=== PATIENT | male | born 1950 | race Caucasian/White ===

== ENCOUNTER 2018-04-22 05:34 | Outpatient (CLI) | payer MEDICARE ==
[~2018-04-22] VITALS: Ht 167.6 cm; Wt 59.0 kg
[2018-04-22] MEDS ORDERED: CLOP75TA69 PO (09:42)
[2018-04-22] MEDS ORDERED: ASPI-808 PO (09:42)
[2018-04-22] MEDS ORDERED: ROSU20TA PO (09:42)
[2018-04-22] MEDS ORDERED: MORP30TA60 PO (09:42)
[2018-04-22] MEDS ORDERED: HYDR-3820 PO (09:43)
== END 2018-04-22 09:57 | disposition home or self-care (01) ==
LOC: PREOP 05:34
PROVIDERS: ATTEND Surgery
DX: Z01.818 Encounter for other preprocedural examination (principal)

== ENCOUNTER 2018-04-29 06:29 | Day surgery (SDC) | payer MEDICARE, OTHER ==
[~2018-04-29] VITALS: Ht 167.6 cm; Wt 59.0 kg
[~2018-04-29 06:29] MED LIST: ASPI-808 PO; CLOP75TA69 PO; HYDR-3820 PO; MORP30TA60 PO; ROSU20TA PO
[2018-04-29] MEDS ORDERED: LACTATED RINGERS 1,000 ML IV ONE ×2 (07:01→08:45)
[2018-04-29 07:08] VITALS: BP 155/77
[2018-04-29] MEDS ORDERED: PROPOFOL INJECTION 50 ML IV ONE ×2 (07:14→08:45)
[2018-04-29] MEDS ORDERED: MIDAZOLAM 2 MG/2 ML (VERSED) VIAL ONE (07:15)
--- NOTE | 2018-04-29 08:19 | Progress Note-Pre Operative ---
Pre-Operative Progress Note H&P Reviewed The H&P was reviewed, patient examined and no changes noted. Time Seen by Provider: 08:14 Date H&P Reviewed: Apr 29, 2018 Time H&P Reviewed: 08:15 Pre-Operative Diagnosis: screening colonoscopy, Hx of colonic polyps GRACIELA MELISSA DO Apr 29, 2018 08:19
--- OUTSIDE RECORDS SUMMARY | 2018-04-29 08:53 | XMS REPORT | CCD ---
Author Author SHADI GARZA Unknown Address [address] [place] [address] Care Team Providers Care Net Developer Programmer Name Role Phone BROOKLYN BEYER, SHIN Fuller Attphys Allergies Allergy Code Allergy Type Reaction Status Unknown Code - 0 0 Propensity to adverse reactions Active NIACIN 7393 Drug allergy Active PENICILLINS (CLASS) 55590 Drug allergy Active Active Medications Unknown or Not Available. Problems Unknown or Not Available. Procedures Procedure Code Procedure Type Date CX CHEST [address] 04/07/2017 TROPONIN-I ADV 292710757 SNOMED CT 04/07/[address] 04/07/2017 CBC W/ AUTO DIFF (RFLX MAN DIFF IF IND) 3502507 SNOMED CT 04/07/2017 COMPREHENSIVE METABOLIC PANEL 938908697 SNOMED CT [address] 04/07/2017 ^CBC W/AUTO DIFF 8168037 SNOMED CT 04/07/2017 Results COMPREHENSIVE METABOLIC PANEL - Collect Date/Time: 04/07/2017 12:45 Test Name Code Test Result Test Units Test Ref Range GLUCOSE 2345-7 91 MG/DL L=70 H=100 SODIUM 2951-2 140 MEQ/L L=135 H=148 POTASSIUM 2823-3 4.6 MEQ/L L=3.5 H=5.3 CHLORIDE 2075-0 107 MEQ/L L=96 H=110 CO2 2028-9 23 MEQ/L L=22 H=29 BUN 3094-0 19 MG/DL L=8 H=22 CREATININE 2160-0 0.8 MG/DL L=0.6 H=1.6 SGOT/AST 1920-8 19 IU/L L=10 H=40 SGPT/ALT 1742-6 23 IU/L L=8 H=54 ALK PHOS 6768-6 108 IU/L L=35 H=115 TOTAL PROTEIN 2885-2 6.5 G/DL L=5.5 H=8.5 ALBUMIN 1751-7 3.9 G/DL L=3.1 H=5.4 TOTAL BILI 1975-2 0.4 MG/DL L=0.0 H=1.5 CALCIUM 80900-8 9.5 MG/DL L=8.2 H=10.6 AGE 66 yrs GFR NonAA 96 GFR AA 116 eGFR >60 N/A eGFR AA* >60 N/A MAGNESIUM - Collect Date/Time: 04/07/2017 12:45 Test Name Code Test Result Test Units Test Ref Range MAGNESIUM 45953-0 2.3 MG/DL L=1.7 H=2.8 CBC W/ AUTO DIFF (RFLX MAN DIFF IF IND) - Collect Date/Time: 04/07/2017 12:45 Test Name Code Test Result Test Units Test Ref Range WBC 09164-3 8.2 TH/CMM L=4.5 H=10.8 RBC 789-8 4.47 ML/CMM L=4.70 H=6.10 HGB 718-7 14.1 G/DL L=14.0 H=18.0 HCT 4544-3 42.2 % L=42.0 H=52.0 MCV 94 FL L=81 H=99 MCH 31.5 PG L=27.0 H=33.0 MCHC 33.4 G/DL L=31.0 H=36.0 RDW SD 44 FL L=36 H=50 RDW CV 12.5 % L=0.0 H=14.8 MPV 9.9 FL L=9.3 H=12.5 PLT 777-3 206 TH/CMM L=130 H=440 NRBC# 0.00 TH/CMM L=0.00 H=0.00 NRBC% 0.0 /100WBC L=0.0 H=2.0 %NEUT 64.1 % %LYMP 23.5 % %MONO 10.2 % %EOS 1.5 % %BASO 0.6 % #NEUT 5.25 TH/CMM L=2.10 H=8.20 #LYMP 1.93 TH/CMM L=0.90 H=5.20 #MONO 0.84 TH/CMM L=0.16 H=1.00 #EOS 0.12 TH/CMM L=0.00 H=0.80 #BASO 0.05 TH/CMM L=0.00 H=0.20 MANUAL DIFF NOT IND N/A PT/PTT - Collect Date/Time: 04/07/2017 12:45 Test Name Code Test Result Test Units Test Ref Range PROTIME 5964-2 10.1 SEC L=9.9 H=11.9 INR 68906-5 0.9 PTT 3173-2 30.1 SEC L=22.2 H=37.2 BNP - Collect Date/Time: 04/07/2017 12:45 Test Name Code Test Result Test Units Test Ref Range BNP 66998-5 94 PG/ML L=0 H=100 TROPONIN-I ADV - Collect Date/Time: 04/07/2017 12:45 Test Name Code Test Result Test [place] [address]-4 <0.04 ng/mL L=0.04 H= 0.40 Function Status Unknown or Not Available. History of Immunizations Unknown or Not Available. Plan of Treatment Unknown or Not Available. Social History Smoking Status Code Start Date End Date Current every day smoker 441428446 Vital Signs Unknown or Not Available. Function Status Unknown or Not Available. Goals Unknown or Not Available. ASSESSMENTS Unknown or Not Available. Health Concerns Section Unknown or Not Available.
--- OUTSIDE RECORDS SUMMARY | 2018-04-29 08:54 | XMS REPORT ---
Author Author Mg Posadas Organization [facility] Address [address] [place], [place] [id number] Care Team Providers Care Manager Research And Development Name Role Phone Mg Posadas PCP Unavailable Allergies and Adverse Reactions Name Reaction Notes PENICILLINS Plan of Treatment Planned Activity Comments Planned Date Planned Time Plan/Goal ASSAY OF PSA TOTAL 07/11/2016 12:00 AM COMPLETE CBC W/AUTO DIFF WBC 07/11/2016 12:00 AM METABOLIC PANEL TOTAL CA 07/11/2016 12:[address] ABD & PELV W/CONTRAST 07/11/2016 12:00 AM Medications Active Name Start Date Estimated Completion Date SIG Comments Plavix oral morphine oral hydrocodone-acetaminophen oral Xanax oral Name Start Date Expiration Date SIG Comments Prevacid 30 mg oral capsule,delayed release(DR/EC) take 1 capsule (30 mg ) by oral route once daily before a meal Zantac 150 mg oral tablet take 1 tablet (150 mg) by oral route once daily at bedtime Kapidex 60 mg oral capsule,biphase delayed releas 01/06/2010 01/31/2010 take 1 capsule (60 mg) by oral route once daily for 25 days Phenergan 25 mg oral tablet 01/15/2010 01/25/2010 take 1 tablet (25 mg) by oral route every 4 hours as needed for 10 days Klonopin 1 mg oral tablet 01/15/2010 02/14/2010 1 qd to BID prn tuzrcuusre-otvqotr-hicxgtdm 50-325-40 mg oral tablet 01/30/2010 03/31/2010 1 tab every 6 hours prn Lortab 10-500 mg oral tablet 02/03/2010 05/04/2010 take 1 tablet by oral route every 6 hours as needed for breakthrough pain MS Contin 15 mg oral tablet extended release 03/14/2010 04/13/2010 take 1 tablet (15 mg) by oral route every 12 hours for 30 days Problem List Description Status Onset Dysuria Active 07/27/2014 Slowing of Urinary Stream Active 07/27/2014 Benign Hypertrophy of Prostate (BPH) Active 07/27/2014 H/O: urethral stricture Active 08/31/2014 Vital Signs Date Time BP-Sys(mm[Hg] BP-Ruthann(mm[Hg]) HR(bpm) RR(rpm) Temp WT HT HC BMI BSA BMI Percentile O2 Sat(%) 07/11/2016 11:31:00 AM 122 mmHg 78 mmHg 57 bpm 17 rpm 97.8 F 130 lbs 65 in 21.63 kg/m2 1.64 m2 97 % 08/31/2014 8:51:00 AM 170 lbs 66 in 27.4384 kg/m 1.8949 m 07/27/2014 8:19:00 AM 166 lbs 66 in 26.79 kg/m2 1.87 m2 01/13/2010 9:28:00 AM 140 mmHg 80 mmHg 173 lbs 01/06/2010 8:58:00 AM 140 mmHg 80 mmHg 182 lbs 11/10/2009 10:20:00 AM 120 mmHg 80 mmHg 186 lbs Social History Name Description Comments lives at home Lives with spouse LIVES WITH SON denies alcohol use sober x 8 years Tobacco Use 1/2 pack daily [employer] service History of Procedures Date Ordered Description Order Status 01/13/2010 12:[address] ABDOMEN W/O & W/DYE Reviewed 01/13/2010 12:00 AM OSTEOPATH MANJ 1-2 REGIONS Reviewed 11/10/2009 12:00 AM OSTEOPATH MANJ 1-2 REGIONS Reviewed 11/10/2009 12:00 AM OSTEOPATH MANJ 3-4 REGIONS Reviewed 07/27/2014 9:28 AM URINALYSIS AUTO W/O SCOPE Reviewed Results Summary Data and Description Results 07/27/2014 9:28 AM Bilirub Ur Ql Strip -VE Glucose Ur-sCnc -VE Hgb Ur Ql Strip -VE Ketones Ur Ql Strip -VE Nitrite Ur Ql Strip -VE pH Ur-LsCnc 6.0 Prot Ur Ql Strip TRACE Sp Gr Ur Qn 1020 Urobilinogen Ur-mCnc -VE WBC Est Ur Ql Strip -VE 07/30/2014 9:50 AM WBC 9.0 RBC 4.37 HGB 13.70 g/dLHCT 41.50 %MCV 95.0 fLMCH 31.40 pgMCHC 33.0 g/dLRDW CV 13.30 %MPV 10.20 fLPLT 204 %NEUT 68.80 %%LYMP 24.90 %%MONO 5.10 %%EOS 1.0 %%BASO 0.20 %#NEUT 6.20 #LYMP 2.25 #MONO 0.46 #EOS 0.09 #BASO 0.02 GLUCOSE 129.0 mg/dLSODIUM 140.0 mmol/LPOTASSIUM 3.90 mmol/ LCHLORIDE 108.0 mmol/LCO2 22.0 mmol/LBUN 10.0 mg/dLCREATININE 0.80 mg/dLSGOT/ AST 25.0 IU/LSGPT/ALT 36.0 IU/LALK PHOS 121.0 IU/LTOTAL PROTEIN 5.80 g/ dLALBUMIN 3.70 g/dLTOTAL BILI 0.40 mg/dLCALCIUM 9.30 mg/dLeGFR 60 History Of Immunizations Not available. History of Past Illness Name Date of Onset Comments prostate cancer Back pain Gastritis Jan 06 2010 8:59AM Heartburn Jan 06 2010 8:59AM Low Back Pain Jan 06 2010 8:59AM Abdominal Pain, Generalized Jan 13 2010 9:30AM Gastroesophageal Reflux Jan 13 2010 9:30AM Nausea Jan 13 2010 9:30AM Weight Loss Jan 13 2010 9:30AM Low Back Pain Jan 13 2010 9:30AM Lumbar Disc Disease Jan 13 2010 9:30AM Anxiety Disorder Jan 13 2010 9:30AM Fatigue Jan 13 2010 9:30AM Prostate Cancer Jan 13 2010 9:30AM Gastroesophageal Reflux b 2009 10:21AM Nausea b 2009 10:21AM Low Back Pain Nov 10 2009 10:21AM Lumbar Disc Disease Nov 10 2009 10:21AM Neck Pain b 2009 10:21AM Cervical Somatic Dysfunction Nov 10 2009 10:21AM Thoracic Somatic Dysfunction Nov 10 2009 10:21AM Cervical Somatic Dysfunction Jan 15 2010 9:04PM Thoracic Somatic Dysfunction Jan 15 2010 9:04PM Cervical Somatic Dysfunction Feb 07 2010 2:02PM Thoracic Somatic Dysfunction Feb 07 2010 2:02PM Lumbar Somatic Dysfunction Feb 07 2010 2:02PM Dysuria 07/27/2014 Slowing of Urinary Stream 07/27/2014 Benign Hypertrophy of Prostate (BPH) 07/27/2014 H/O: urethral stricture 08/31/2014 Moderate Dysuria Jul 27 2014 8:25AM Moderate Slowing of Urinary Stream Jul 27 2014 8:25AM Moderate Benign Hypertrophy of Prostate (BPH) Jul 27 2014 8:25AM Severe H/O: urethral stricture Aug 31 2014 9:22AM Smoking Jul 11 2016 12:00PM Weight loss Jul 11 2016 12:00PM Left Lower abdominal pain Jul 11 2016 12:00PM Bladder cancer Jul 11 2016 12:00PM Payers Insurance Name Company Name Plan Name Plan Number Policy Number Policy Group Number Start Date Medicare Part B [employer] [place] [id number] Tuesday, 2005 [facility] [id number] N/A History of Encounters Visit Date Visit Type Provider 07/11/2016 Office visit Mg Posadas MD 12/26/2015 Hospital V Jere Posadas MD 02/02/2015 Hospital Mg Posadas MD 02/01/2015 Office visit Mg Posadas MD 08/31/2014 Office visit Mg Posadas MD 08/03/2014 Surgery Mg Posadas MD 07/27/2014 Office visit Mg Posadas MD 06/01/2012 [facility] Rishi Meredith MD 01/13/2010 Office visit Quinn Mcclain DO 01/06/2010 Office visit Quinn Mcclain DO 11/10/2009 Procedures Quinn Mcclain DO 07/20/2009 Office visit Quinn Mcclain DO 06/16/2009 Office visit Quinn Mcclain DO
--- OUTSIDE RECORDS SUMMARY | 2018-04-29 08:54 | XMS REPORT ---
Author Author [facility] Organization [facility] Address [address] [place], [place] [id number] Care Team Providers Care Manufacturing Finance Manager Name Role Phone PCP Unavailable Allergies and Adverse Reactions Name Reaction Notes PENICILLINS Plan of Treatment Not available. Medications Active Name Start Date Estimated Completion Date SIG Comments Plavix oral morphine oral hydrocodone-acetaminophen oral Xanax oral Name Start Date Expiration Date SIG Comments Prevacid Oral Capsule, Delayed Release(E.C.) 30 mg take 1 capsule (30 mg ) by oral route once daily before a meal Zantac Oral Tablet 150 mg take 1 tablet (150 mg) by oral route once daily at bedtime Kapidex Oral Cap, Delayed Rel., Multiphasic 60 mg 01/06/2010 01/31/2010 take 1 capsule (60 mg) by oral route once daily for 25 days Phenergan Oral Tablet 25 mg 01/15/2010 01/25/2010 take 1 tablet (25 mg) by oral route every 4 hours as needed for 10 days Klonopin Oral Tablet 1 mg 01/15/2010 02/14/2010 1 qd to BID prn Jqmnmdnpkj-Eadmaxx-Hbdlxikc Oral Tablet 50-325-40 mg 01/30/2010 03/31/2010 1 tab every 6 hours prn Lortab Oral Tablet 10-500 mg 02/03/2010 05/04/2010 take 1 tablet by oral route every 6 hours as needed for breakthrough pain MS Contin Oral Tablet Sustained Release 15 mg 03/14/2010 04/13/2010 take 1 tablet (15 mg) by oral route every 12 hours for 30 days Problem List Description Status Onset Dysuria Active 07/27/2014 Slowing of Urinary Stream Active 07/27/2014 Benign Hypertrophy of Prostate (BPH) Active 07/27/2014 H/O: urethral stricture Active 08/31/2014 Vital Signs Date Time BP-Sys(mm[Hg] BP-Ruthann(mm[Hg]) HR(bpm) RR(rpm) Temp WT HT HC BMI BSA BMI Percentile O2 Sat(%) 08/31/2014 8:51:00 AM 170 lbs 66 in 27.44 kg/m2 1.89 m2 07/27/2014 8:19:00 AM 166 lbs 66 in 26.7928 kg/m 1.8725 m 01/13/2010 9:28:00 AM 140 mmHg 80 mmHg [...] Nausea b 2009 10:21AM Low Back Pain b 2009 10:21AM Lumbar Disc Disease b 2009 10:21AM Neck Pain b 2009 10:21AM Cervical Somatic Dysfunction b 2009 10:21AM Thoracic Somatic Dysfunction b 2009 10:21AM Cervical Somatic Dysfunction Jan 15 [...] H/O: urethral stricture Aug 31 2014 9:22AM Payers Insurance Name Company Name Plan Name Plan Number Policy Number Policy Group Number Start Date Medicare Part B [employer] [place] [id number] Monday, 2006 [facility] [id number] N/A History of Encounters Visit Date Visit Type Provider 02/01/2015 Office visit V Jere Posadas MD 08/31/2014 Office visit V Jere Posadas MD 08/03/2014 Surgery Mg Posadas MD 07/27/2014 Office visit Mg Posadas MD 06/01/2012 [facility] Rishi Meredith MD 01/13/2010 Office visit Quinn Mcclain DO 01/06/2010 Office visit Quinn Mcclain DO 11/10/2009 Procedures Quinn Mcclain DO 07/20/2009 Office visit Quinn Mcclain DO 06/16/2009 Office visit Quinn Mcclain DO
--- NOTE | 2018-04-29 09:00 | Progress Note-Post Operative ---
Post-Operative Progess Note Surgeon (s)/Pharmacology Associate (s) Surgeon GRACIELA MELISSA DO Pharmacology Associate: none Pre-Operative Diagnosis screening colonoscopy, Hx of colonic polyps Post-Operative Diagnosis Polyps Diverticula Internal Hemorrhoids Procedure & Operative Findings Date of Procedure 04/29/18 Procedure Performed/Findings Colon with snare Anesthesia Type IV sedation by PATHOLOGY LABORATORY DIRECTOR Estimated Blood Loss Estimated blood loss (mL): scant Specimens/Packing Specimens Removed 3 Ascending colon Polyps (2 removed completely and one in pieces) Descending colon polyp GRACIELA MELISSA DO Apr 29, 2018 09:00
--- NOTE | 2018-04-29 09:01 | Endoscopy Discharge Instruct ---
Endo Procedure/Findings Findings 1.: Polyp 2.: Diverticulosis 3.: Internal Hemorrhoids Discharge Instructions - Activity: You might feel a little sleepy until tomorrow. This is due to the medicine you received to relax you. Until tomorrow, you should: NOT drive a car, operate machinery or power tools. NOT drink any alcoholic beverages. NOT make any important decisions or sign importortant papers. Do not return to work until tomorrow, unless otherwise instructed. Resume previous activities tomorrow. Diet: Start by taking liquids. If you tolerate liquids, advance to solid food. Make appointment for 1 week. Instructions: 1.: Colonscopy in 3 years Notify Physician - If you experience excessive bleeding, unusual abdominal pain, fever, or chest pain, contact your doctor immediately. Follow-Up: - I have received and understand the above instructions and will call my doctor if I have any further questions. Patient Signature Date Nurse Signature Other (Relationship) GRACIELA MELISSA DO Apr 29, 2018 09:01
[2018-04-29 09:10] VITALS: BP 161/91
[2018-04-29 09:40] VITALS: BP 158/76
--- NOTE | 2018-04-29 09:55 | Anesthesia-General Post-Op ---
MAC Patient Condition Mental Status/LOC: Same as Preop Cardiovascular: Satisfactory Nausea/Vomiting: Absent Respiratory: Satisfactory Pain: Controlled Complications: Absent Post Op Complications Complications None Follow Up Care/Instructions Patient Instructions None needed. Anesthesiology Discharge Order Discharge Order Patient is doing well, no complaints, stable vital signs, no apparent adverse anesthesia problems. No complications reported per nursing. MARISOL MCCLURE CRNA Apr 29, 2018 09:55
[2018-04-29 10:00] VITALS: BP 158/76
--- NOTE | 2018-04-30 02:23 | OPERATIVE REPORT ---
DATE OF SERVICE: PREOPERATIVE DIAGNOSES: Hemoccult positive, screening colonoscopy. POSTOPERATIVE DIAGNOSES: 1. Polyp. 2. Diverticula. 3. Internal hemorrhoids. PROCEDURE: Colonoscopy with snare polypectomy. SURGEON: Manuelito Tiwari DO. ENGINE OILER: None. ANESTHESIA: IV sedation by the VIDEO TECHNICIAN. SPECIMEN: Polyps from the colon. BLOOD LOSS: Scant. FLUIDS: Per anesthesia. POSTOPERATIVE CONDITION: Stable. INDICATION FOR PROCEDURE: The patient is a 67-year-old male who had a little bit of occult positive blood. Has not had a screening colonoscopy in a while. FINDINGS: The patient had multiple polyps removed and sent to pathology. He also had some diverticula and some internal hemorrhoids. PROCEDURE NOTE: After informed consent was obtained, the patient was brought to the endoscopy suite, placed in the left lateral decubitus position. He was administered IV sedation by the VIDEO TECHNICIAN who then monitored his vitals the entire time, heart rate, blood pressure and pulse ox and the scope was inserted after pushing all the way in. On the way in, noted some polyps, took pictures, these able to get all the way to the cecum, took a picture of appendiceal orifice, noted the ileocecal valve and then slowly withdrew the scope insufflating to look circumferentially at the galarza looking at the cecum up the ascending colon to the hepatic flexure, then down the transverse colon, splenic flexure, then into the descending colon and finally into the sigmoid colon and then down in the rectum, saw some diverticula in the sigmoid and descending colon, polyp seen in the transverse colon and descending colon. These were taken out by snare polypectomy and sent to pathology. Retroflexed in rectal vault, saw some internal hemorrhoids, took a picture of this and then removed the scope. The patient tolerated the procedure. He was recovered in the endoscopy suite. Job ID: [id number] DocumentID: [id number] Dictated Date: 04/29/2018 17:54:51 Parts Identification Technician Date: 04/30/2018 02:23:36 Dictated By: MANUELITO TIWARI DO
== END 2018-04-29 10:00 | disposition home or self-care (01) ==
LOC: ENDO 06:29
PROVIDERS: ATTEND Surgery
DX: D12.2 Benign neoplasm of ascending colon (principal); K57.30 Diverticulosis of large intestine without perforation or abscess without bleeding; K64.8 Other hemorrhoids; R19.5 Other fecal abnormalities; I25.10 Atherosclerotic heart disease of native coronary artery without angina pectoris; I10 Essential (primary) hypertension; F17.210 Nicotine dependence, cigarettes, uncomplicated; Z95.5 Presence of coronary angioplasty implant and graft; Z79.02 Long term (current) use of antithrombotics/antiplatelets; Z79.82 Long term (current) use of aspirin